=== PATIENT | female | born 2000 | race Caucasian/White ===

== ENCOUNTER 2025-02-10 11:00 | Emergency (ER) | payer SELFPAY ==
[~2025-02-10] VITALS: Ht 162.6 cm; Wt 65.0 kg
[2025-02-10 11:12] VITALS: O2SAT 98
[2025-02-10] MEDS: ACETAMINOPHEN 325MG TABLET PO ONE (11:42)
[2025-02-10] MEDS ORDERED: LIDO-53 TP (13:40)
[2025-02-10] MEDS ORDERED: ACET-2708 MT (13:40)
[2025-02-10 14:09] VITALS: BP 129/83; PULSE 80; RESP 18; TEMP 36.8; O2SAT 97
== END 2025-02-10 14:24 | disposition home or self-care (01) ==
LOC: ER 11:00
DX: M54.50 Low back pain, unspecified (principal)
CPT/HCPCS: 72040; 81025; 99283